=== PATIENT | male | born 1960 | race Caucasian/White ===

== ENCOUNTER 2018-10-01 07:01 | Day surgery (SDC) | payer BC, MEDICAID ==
[2018-10-01] MEDS ORDERED: Propofol 200 MG/20 ML SDV ONE ×2 (07:20→09:11)
[2018-10-01] MEDS ORDERED: Midazolam 1 MG/ML 2 ML SDV ONE (07:20)
[2018-10-01] MEDS ORDERED: fentaNYL 100 MCG/2 ML SDV ONE (07:20)
[2018-10-01] MEDS ORDERED: Lactated Ringers 1,000 ML IV SCH (08:15)
[2018-10-01 10:32] VITALS: BP 139/104
--- NOTE | 2018-10-01 14:51 | OR ---
DATE OF PROCEDURE: 10/01/2018 PREOPERATIVE DIAGNOSIS: History of colon polyps. POSTOPERATIVE DIAGNOSES: Diverticulosis, multiple colon polyps. PROCEDURE PERFORMED: Colonoscopy to the cecum with biopsy resection or snare cautery polypectomy of polyps in the distal transverse colon, proximal transverse colon, right colon, mid transverse colon, proximal left colon, and at 20 cm from the anal verge. ANESTHESIA: IV anesthesia with monitored anesthesia care. INDICATION: This 58-year-old white male was referred for a colonoscopy because of a history of multiple prior colon polyps. He says his last colonoscopic exam was done 5 years ago. I counseled him for the procedure including risks and alternatives, and he gave his informed consent to proceed. DESCRIPTION OF PROCEDURE: The patient was placed in the left lateral decubitus position. IV anesthesia was administered by the Anesthesia Service. Time-out was held. A rectal exam was performed which was unremarkable. The flexible video Olympus colonoscope was introduced through his anus, up his rectum, out his colon, all way to the cecum. En route, in the distal transverse colon, we saw a polyp. We initially biopsied it. It was too large to remove using this technique. A snare was then passed about its base. It was elevated up away from the bowel wall and amputated as electrocautery was applied. The polyp was aspirated up through the scope and captured in a polyp trap. The scope was passed up further in the proximal transverse colon. Another polyp too large to remove with the biopsy forceps was encountered and this was initially biopsied and then snared. It was aspirated through the scope and captured in a polyp trap. In the right colon, a small polyp was seen which was removed with the biopsy forceps. The cecum was then reached. The scope was then slowly withdrawn examining the mucosa throughout. In the midtransverse colon, we saw another polyp which we biopsied and then snared. In the proximal left colon, another polyp was seen, which we biopsied and then snared, and then 1 more polyp in the colon at 20 cm from the anal verge was seen, biopsied and snared. The scope was retroflexed in the rectum with the distal rectum appearing unremarkable, except for some minor hemorrhoidal tissue. The scope was straightened and removed. He tolerated the procedure well. Brian Mesa MD /[id number]
== END 2018-10-01 10:30 | disposition home or self-care (01) ==
LOC: JP.SDS 07:01
PROVIDERS: ATTEND Surgery
DX: Z12.11 Encounter for screening for malignant neoplasm of colon (principal); D12.4 Benign neoplasm of descending colon; D12.2 Benign neoplasm of ascending colon; D12.3 Benign neoplasm of transverse colon; D12.5 Benign neoplasm of sigmoid colon; K64.9 Unspecified hemorrhoids; I10 Essential (primary) hypertension; E78.5 Hyperlipidemia, unspecified; F17.200 Nicotine dependence, unspecified, uncomplicated; Z86.010 Personal history of colon polyps
CPT/HCPCS: 45380; 45385; 88305; J2250; J2704; J3010; J7120